=== PATIENT | male | born 1960 | race Caucasian/White ===

== ENCOUNTER 2016-12-28 08:20 | Observation (INO) | payer BC ==
[2016-12-17 14:01] VITALS: BMI 33.0
--- NOTE | 2016-12-25 13:47 | HISTORY & PHYSICAL EXAMINATION ---
DATE OF ADMISSION: 12/28/2016 CHIEF COMPLAINT: Low back pain. SECONDARY COMPLAINT: Left lower extremity difficulty on the left hand side. HISTORY OF PRESENT ILLNESS: Eldon is a 56-year-old male who lives down in the [facility]. He is currently being taken care of by Dr. Pro Carrero. He describes significant low back pain, sciatica, nerve root irritation. Most of the pain radiates down his left leg. This is all consistent with spinal pathology. The duration of the symptoms have lasted for approximately 5 years. He has tried and failed conservative therapy such as physical therapy, chiropractic and epidural steroid injections. It has been mentioned to him he may require some surgery. PAST MEDICAL HISTORY: Includes asthma and slight obesity. No heart disease, diabetes, connective tissue disorders. PAST SURGICAL HISTORY: Includes a tonsillectomy and colonoscopy. ALLERGIES: INCLUDE IMMODIVA. CURRENT MEDICATIONS: Includes Symbicort, Singulair. FAMILY MEDICAL HISTORY: Positive for heart disease, stroke, diabetes, blood clots, DVTs, PEs, no cancer. SOCIAL HISTORY: He is . Rarely drinks. Chews tobacco. Little activity. REVIEW OF SYSTEMS: CONSTITUTIONAL: Positive for weight change and fatigue. GENITOURINARY: Positive for frequent urination. MUSCULOSKELETAL: Positive for joint pain and stiffness. PHYSICAL EXAMINATION: VITAL SIGNS: He is 6 foot, 250 pounds. GENERAL: He is in no terrible distress. PSYCHIATRIC: He is alert, oriented x3. He is under control. Mentation is normal. RESPIRATORY: Normal. Lungs are clear to auscultation. No wheezing. CARDIOVASCULAR: Normal S1, S2, no S3 was auscultated. NEUROLOGIC: Neurologically intact. 5/5 strength in the upper and lower extremities. Good sensation and motor ability. Trace numbness in the L5 nerve root distribution on the left hand side of his lower extremity. No upper motor neuron pathology. INTEGUMENTARY: Intact. Specifically no zoster infections. GASTROINTESTINAL: Abdomen is soft, nontender. No organomegaly was percussed or palpated. MUSCULOSKELETAL: In mild pain with straight leg raises on the left, negative on the right. His range of motion is satisfactory. DIAGNOSTIC TESTS: X-rays and images demonstrate a very low grade spondylolisthesis at L4-L5 synovial cyst located at L4-L5 on the affected left hand side and some stenosis as well. ASSESSMENT AND DIAGNOSES: Low great spondylolisthesis, synovial cyst at L4-L5, nerve root entrapment and stenosis at the L4-L5 lumbar segments. PLAN: We have offered him surgery. The surgery of choice would be a laminectomy and decompression at the L4-L5 level with transition fusion technology. We would be decompressing that nerve root on the left hand side mainly at the L4-L5 level. We did provide him with information such as the risks and benefits. We discussed the prognosis as well. We expect him to be at [facility] for 1 day, most likely 2. We provided him for postop pain medication. We provided him a back brace for postop as well. We will follow him up 10-14 days postop, suture removal and evaluation. Again we will provide him with laminectomy, decompression at L4-L5 level with pedicle screws and transition technology at that level.
[~2016-12-28] VITALS: Ht 185.4 cm; Wt 113.6 kg
[~2016-12-28 08:20] MED LIST: ALLERGY SHOT IM; CEFAZOLIN 2000 MG/60 ML D5W 60 ML IV SCH; GLC/500 PO; IBUP-1050 PO; LACTATED RINGER'S 1000ML 1,000 ML IV SCH; MONT1TAB3 PO; NSS 1000ML IV SCH; OXYC1TAB3 PO; PAIN MED PO; SYMIN INH
[2016-12-28 08:47] VITALS: BP 124/62; PULSE 83; TEMP 36.9; O2SAT 98; BMI 33.0
[2016-12-28] MEDS ORDERED: Nucynta (08:47)
[2016-12-28] MEDS ORDERED: THROMBIN FOR SOLN 20000 UNIT KIT ONE (10:38)
[2016-12-28] MEDS ORDERED: GELATIN SPONGE SZ 100 ONE ×2 (10:38→10:53)
[2016-12-28] MEDS ORDERED: BACITRACIN 50000 UNIT VIAL ONE (10:38)
[2016-12-28] MEDS ORDERED: VANCOMYCIN HCL 1000MG/20ML VIAL ONE (10:38)
[2016-12-28] MEDS ORDERED: BUPIVACAINE/EPINEPHRINE 0.5% MPF 1:200,000 30 ML VIAL ONE (10:38)
[2016-12-28] MEDS ORDERED: FENTANYL CITRATE INJ 50 MCG/1 ML 2 ML VIAL ONE (10:53)
[2016-12-28] MEDS ORDERED: MIDAZOLAM HCL 1 MG/ML 2ML VIAL ONE (10:53)
--- NOTE | 2016-12-28 11:05 | History & Physical Bridge Note ---
H&P Re-Evaluation Bridge Note: I have examined the patient, reviewed the History & Physical and in the interval since the performance of the History & Physical I have noted the following changes of clinical significance: No changes noted
[2016-12-28] MEDS ORDERED: ROCURONIUM BROMIDE 10 MG/ML 5 ML VIAL ONE (12:39)
[2016-12-28] MEDS ORDERED: GLYCOPYRROLATE INJ 0.2 MG/ML VIAL ONE (12:39)
[2016-12-28] MEDS ORDERED: ONDANSETRON INJ 2 MG/ML 2 ML VIAL ONE (12:39)
[2016-12-28] MEDS ORDERED: DEXAMETHASONE SOD INJ 4 MG/ML VIAL ONE (12:39)
[2016-12-28] MEDS ORDERED: PROPOFOL IV EMULSION 10 MG/ML 20 ML VIAL IV ONE (12:39)
[2016-12-28] MEDS ORDERED: LARYING-O-JET KIT (LTA) EXT ONE ×2 (12:39)
[2016-12-28] MEDS ORDERED: LIDOCAINE HCL 2% 2 ML VIAL (20MG/ML) ONE (12:39)
[2016-12-28] MEDS ORDERED: NEOSTIGMINE METHYLSULFATE 5 MG/5 ML SYR ONE (12:39)
[2016-12-28] MEDS ORDERED: FLUMAZENIL 0.1 MG/1 ML 10 ML VIAL IV PRN (13:30)
[2016-12-28] MEDS ORDERED: LABETALOL HCL IV 5 MG/ML 20ML IV PRN (13:30)
[2016-12-28] MEDS ORDERED: PROMETHAZINE HCL INJ 12.5 MG in SODIUM CHLORIDE 0.9% 50ML 50 ML IV PRN ×2 (13:30→14:15)
[2016-12-28] MEDS ORDERED: ATROPINE SULFATE 0.1 MG/ML 5ML SYR IV PRN (13:30)
[2016-12-28] MEDS ORDERED: NALOXONE HCL 0.4 MG/1 ML VIAL/CARP IV PRN ×2 (13:30→14:15)
[2016-12-28] MEDS ORDERED: ONDANSETRON INJ 2 MG/ML 2 ML VIAL IV PRN ×2 (13:30→14:15)
[2016-12-28] MEDS ORDERED: EpHEDrine SULFATE INJ 50 MG/ML AMP IV PRN (13:30)
--- NOTE | 2016-12-28 13:56 | DIAGNOSTIC IMAGING REPORT ---
LUMBAR SPINE, INTRAOPERATIVE FLUOROSCOPY HISTORY: L4-L5 laminectomy. FLUOROSCOPY TIME: 6 seconds. FINDINGS: Intraoperative fluoroscopy was provided for the lumbar spine. A single fluoroscopic spot image. Posterior decompression and fusion at L4-L5 with pedicle screws. IMPRESSION: Fluoroscopy provided for a L4-L5 posterior decompression and fusion. Electronically signed by: Itz Donald M.D. 12/28/2016 1:55 PM Dictated Date/Time: 12/28/2016 1:54 PM
[2016-12-28] MEDS ORDERED: SODIUM CHLORIDE 0.9% 1000ML 1,000 ML IV SCH (14:04)
--- NOTE | 2016-12-28 14:04 | [facility] Post Operative Brief Note ---
Immediate Operative Summary Operative Date Dec 28, 2016. Pre-Operative Diagnosis Spondylolisthesis, Synovial Cyst L4-L5 Post-Operative Diagnosis Spondylolisthesis, Synovial Cyst L4-L5 Procedure(s) Performed L4-L5 Laminectomy/Decompression with Globus Transition Surgeon Dr. English Tmd Teacher Surgeon(s) APURVA Enamorado Estimated Blood Loss 400ML Findings severe stenosis Specimens none per surgeon Complication(s) None Disposition Recovery Room / PACU
[2016-12-28] MEDS ORDERED: METOCLOPRAMIDE HCL INJ 5 MG/ML 2 ML VIAL IV PRN (14:15)
[2016-12-28] MEDS ORDERED: MAGNESIUM HYDROXIDE SUSP 30 ML UDC PO PRN (14:15)
[2016-12-28] MEDS ORDERED: LORAZEPAM 1 MG TAB PO PRN (14:15)
[2016-12-28] MEDS ORDERED: LORAZEPAM INJ 1 MG in SYRINGE 0 ML IV PRN (14:15)
[2016-12-28] MEDS ORDERED: ACETAMINOPHEN 325 MG TAB PO PRN (14:15)
[2016-12-28] MEDS ORDERED: HYDROmorphone INJ 1 MG/ML SYR ONE (14:24)
[2016-12-28] MEDS ORDERED: HYDROmorphone HCL 0.5MG/ML 50 ML CASSETTE ONE (14:24)
[2016-12-28] MEDS: HYDROmorphone INJ 1 MG/ML SYR IV PRN ×3 (14:44→14:54)
--- NOTE | 2016-12-28 15:06 | Anesthesiology Progress Note ---
Anesthesia Post Op Note Date & Time Dec 28, 2016 at 15:06 Vital Signs Pain Intensity: 6 Vital Signs Past 12 Hours Date Time Temp Pulse Resp B/P Pulse Ox O2 Delivery O2 Flow Rate FiO2 12/28/16 14:55 90 12 135/77 97 Nasal Cannula 4 12/28/16 14:45 76 12 125/72 98 Nasal Cannula 4 12/28/16 14:35 70 12 129/71 99 Nasal Cannula 4 12/28/16 14:25 66 12 148/69 100 Mask 10 12/28/16 14:15 64 16 141/69 100 Mask 10 12/28/16 14:05 36.1 80 16 117/69 98 Mask 10 12/28/16 08:47 36.9 83 18 124/62 98 Room Air Notes Mental Status: alert / awake / arousable, participated in evaluation Pt Amnestic to Procedure: Yes Nausea / Vomiting: adequately controlled Pain: adequately controlled Airway Patency, RR, SpO2: stable & adequate BP & HR: stable & adequate Hydration State: stable & adequate Anesthetic Complications: no major complications apparent
[2016-12-28] MEDS: HYDROmorphone HCL 0.5MG/ML 50 ML CASSETTE IV PRN ×2 (15:27→23:05)
[2016-12-28] MEDS: SODIUM CHLORIDE 0.9% 1000ML 1,000 ML IV SCH (15:38)
--- NOTE | 2016-12-28 15:38 | OPERATIVE REPORT ---
DATE OF OPERATION: 12/28/2016 PREOPERATIVE DIAGNOSES: Stenosis and synovial cyst, lumbar spine, very low grade spondylolisthesis L4-L5. POSTOPERATIVE DIAGNOSIS: Same. PROCEDURE: Included a laminectomy, foraminotomy, partial facetectomy, decompression of 2 synovial cysts, lumbar spine; L4-L5 pedicle screw instrumentation with motion preserving instrumentation from the [employer]. SURGEON: Dr. English. NATURAL RESOURCES MANAGER: Josh Sotelo PA-C. BLOOD LOSS: 400. COMPLICATIONS: Zero. ANESTHETIC: General. DESCRIPTION OF PROCEDURE: The patient was taken to the operating room, a general intubated anesthetic provided to the patient, placed prone, scrubbed, prepped and draped sterile. We made a skin incision, fascial incision, dissecting the soft tissue in the same plane, put in a deep self-retaining retractors. It was a very difficult dissection, there was more bleeding than we normally encounter. We worked down to the spinous process of the lamina. We did a full laminectomy, foraminotomy. The facet joints were incompetent for the most part, least 50% thereof. We did decompression of nerve root, decompression of a synovial cyst. I did not think he quite was a candidate for a fusion technology, I thought we wanted to preserve a little bit of motion, I thought his disc was in really good shape and not broken down and I did not want to begin a transition process getting further degenerative changes above a very rigid fusion. We then were able to get pedicle screws safely into L5, safely and into L4 bilaterally, was very pleased with the anatomic fit thereof. We then used the Globus transition system 30 mm on the right, 26 mm on the left, secured stable. X-rays excellent. We then irrigated with about 800 mL of fluid, closed over bone graft, vancomycin powder and a Hemovac drain with 1 Vicryl suture, 2-0 and 3-0 nylon on the skin. Sterile dressings applied. The patient returned supine to PACU stable. No apparent complications. I attest to the content of the Intraoperative Record and any orders documented therein. Any exceptions are noted below. MTDD
[2016-12-28 15:56] VITALS: BP 123/81; PULSE 85; TEMP 36.3; O2SAT 100
[2016-12-28 16:39] VITALS: BP 144/89; PULSE 98; TEMP 36.6; O2SAT 99
[2016-12-28] MEDS: KETOROLAC TROMETHAMINE 30 MG/ML VIAL IV. SCH ×2 (16:49→20:47)
[2016-12-28 17:30] VITALS: BP 145/90; PULSE 106; TEMP 36.5; O2SAT 97
[2016-12-28 18:30] VITALS: BP 151/93; PULSE 71; TEMP 36.8; O2SAT 100
[2016-12-28] MEDS: CEFAZOLIN IV 2,000 MG in DEXTROSE 5% 50ML 50 ML IV SCH (18:38)
[2016-12-28] MEDS ORDERED: COUGH DROP (SUGAR FREE) LOZ 24 LOZ/1 BOX ONE (20:10)
[2016-12-28] MEDS: DEXAMETHASONE INJ 10 MG in SYRINGE 0 ML IV SCH (20:42)
[2016-12-28] MEDS: BUDESONIDE/FORMOTEROL FUMARATE 160/4.5 60 PUFFS/INHALER INH SCH (20:42)
[2016-12-28] MEDS: MONTELUKAST SOD 10 MG TAB PO SCH (20:43)
[2016-12-28 22:55] VITALS: BP 122/82; PULSE 85; TEMP 36.5; O2SAT 98
[2016-12-29] MEDS: CEFAZOLIN IV 2,000 MG in DEXTROSE 5% 50ML 50 ML IV SCH ×2 (01:51→10:27)
[2016-12-29] MEDS: SODIUM CHLORIDE 0.9% 1000ML 1,000 ML IV SCH ×2 (01:53→16:14)
[2016-12-29 03:10] VITALS: BP 124/79; PULSE 101; TEMP 36.6; O2SAT 96
[2016-12-29] MEDS: DEXAMETHASONE INJ 10 MG in SYRINGE 0 ML IV SCH ×2 (04:03→11:40)
[2016-12-29] MEDS: KETOROLAC TROMETHAMINE 30 MG/ML VIAL IV. SCH ×3 (04:03→16:17)
[2016-12-29] MEDS ORDERED: DC PCA SCH (06:00)
[2016-12-29] MEDS ORDERED: OXYCODONE/ACETAMINOPHEN 5-325 TAB PO PRN (06:00)
[2016-12-29] MEDS ORDERED: BISACODYL 5 MG TABEC PO PRN (06:00)
[2016-12-29] MEDS ORDERED: HYDROmorphone INJ 2 MG/ML SYR/VIAL IV PRN (06:00)
[2016-12-29] MEDS ORDERED: BISACODYL 10 MG SUPP PR PRN (06:00)
[2016-12-29] MEDS ORDERED: HYDROmorphone INJ 1 MG/ML SYR IV PRN (06:00)
[2016-12-29 07:13] VITALS: BP 113/71; PULSE 87; TEMP 36.8; O2SAT 95
--- NOTE | 2016-12-29 07:41 | Anesthesiology Progress Note ---
Anesthesia Post Op Note Date & Time Dec 29, 2016 at 07:41 Vital Signs Pain Intensity: 3.0 Vital Signs Past 12 Hours Date Time Temp Pulse Resp B/P Pulse Ox O2 Delivery O2 Flow Rate FiO2 12/29/16 07:13 36.8 87 18 113/71 95 Nasal Cannula 2.0 12/29/16 03:10 36.6 101 16 124/79 96 Nasal Cannula 2.0 12/29/16 00:18 Nasal Cannula 2.0 12/28/16 22:55 36.5 85 16 122/82 98 Nasal Cannula 2.0 Notes Mental Status: alert / awake / arousable, participated in evaluation Pt Amnestic to Procedure: Yes Nausea / Vomiting: adequately controlled Pain: adequately controlled Airway Patency, RR, SpO2: stable & adequate BP & HR: stable & adequate Hydration State: stable & adequate Anesthetic Complications: no major complications apparent
[2016-12-29] MEDS: OXYCODONE/ACETAMINOPHEN 5-325 TAB PO PRN ×2 (08:25→13:55)
[2016-12-29] MEDS: BUDESONIDE/FORMOTEROL FUMARATE 160/4.5 60 PUFFS/INHALER INH SCH ×2 (09:35→20:51)
[2016-12-29] MEDS: POLYETHYLENE (MIRALAX) 17 GM PACK PO SCH (09:35)
[2016-12-29 11:18] VITALS: BP 115/79; PULSE 104; TEMP 36.9; O2SAT 93
[2016-12-29 11:36] VITALS: Ht 185.4 cm; Wt 113.6 kg
[2016-12-29] MEDS ORDERED: IV FLUIDS COMPLETED PRN (14:45)
[2016-12-29 15:22] VITALS: BP 108/73; PULSE 100; TEMP 36.8; O2SAT 94
--- NOTE | 2016-12-29 17:24 | Discharge Instructions ---
Discharge Instructions Date of Service Dec 29, 2016. Admission Reason for Admission: Lumbar Spinal Stenosis Discharge Discharge Diagnosis / Problem: spinal stenosis Discharge Goals Goal(s): Improve function Activity Recommendations Activity Limitations: as noted below Lifting Limitations: until after follow-up appointment Exercise/Sports Limitations: until after follow-up appointment May Resume Sexual Activity: after follow-up appointment Shower/Bathe: keep incision dry Driving or Machine Use: home, rest, recover . Current Hospital Diet Patient's current hospital diet: Regular Diet Discharge Diet Recommended Diet: Regular Diet Fluid Restriction: None Procedures Procedures Performed: L4-L5 Laminectomy/Decompression with Globus Transition Pending Studies Studies pending at discharge: no Medical Emergencies . Who to Call and When: Medical Emergencies: If at any time you feel your situation is an emergency, please call 911 immediately. . Non-Emergent Contact Non-Emergency issues call your: Surgeon Call Non-Emergent contact if: you have any medication questions . "Provider Documentation" section prepared by Chito English. VTE Core Measure Inpt VTE Proph given/why not?: Treatment not indicated
[2016-12-29] MEDS: MONTELUKAST SOD 10 MG TAB PO SCH (20:52)
[2016-12-29 23:30] VITALS: BP 111/67; PULSE 83; TEMP 36.7; O2SAT 96
[2016-12-30 05:57] VITALS: BP 120/76; PULSE 90; TEMP 36.8; O2SAT 98
[2016-12-30] MEDS: OXYCODONE/ACETAMINOPHEN 5-325 TAB PO PRN (06:40)
--- NOTE | 2016-12-30 07:44 | DISCHARGE SUMMARY ---
He is alert, oriented. Vital signs stable. No chest pain, shortness of breath. Wound clean, dry. ASSESSMENT: Status post spinal reconstructive surgery. DISPOSITION: Includes instructions, precautions, education. We will discharge him home this morning. He has a followup appointment in 2 weeks. He has medication on his chart. He has instructions and precautions given here at the hospital and in the office.
[2016-12-30 07:49] VITALS: BP 130/78; PULSE 87; TEMP 36.8; O2SAT 94
[2016-12-30] MEDS: POLYETHYLENE (MIRALAX) 17 GM PACK PO SCH (07:55)
[2016-12-30] MEDS: BUDESONIDE/FORMOTEROL FUMARATE 160/4.5 60 PUFFS/INHALER INH SCH (07:55)
[2016-12-30 08:29] VITALS: O2SAT 94
[2016-12-30 09:22] VITALS: BP 130/78; PULSE 87; TEMP 36.8; O2SAT 94
== END 2016-12-30 10:03 | disposition home or self-care (01) ==
LOC: ENRESERVTM → ENRESERVDT → C.ACU 08:20 → C.3E 09:05 → INTOOBSV 09:05
PROVIDERS: ADMIT Orthopaedic Surgery Orthopaedic Surgery of the Spine; ATTEND Orthopaedic Surgery Orthopaedic Surgery of the Spine
DX: M48.06 Spinal stenosis, lumbar region (principal); M71.38 Other bursal cyst, other site; M43.16 Spondylolisthesis, lumbar region; J45.909 Unspecified asthma, uncomplicated; E66.9 Obesity, unspecified; F17.220 Nicotine dependence, chewing tobacco, uncomplicated; Z79.899 Other long term (current) drug therapy; Z68.33 Body mass index [BMI] 33.0-33.9, adult; Z82.3 Family history of stroke; Z83.3 Family history of diabetes mellitus; Z82.49 Family history of ischemic heart disease and other diseases of the circulatory system